=== PATIENT | female | born 1960 | race Caucasian/White ===

== ENCOUNTER 2023-05-18 12:42 | Outpatient (CLI) | payer OTHER ==
--- NOTE | 2023-05-18 13:46 | XRAY Report ---
PROCEDURE: Knee 2 View LT INDICATIONS: PAIN IN LEFT LOWER LEG TECHNIQUE: 2 views of the left knee(s) were acquired. COMPARISON: None. FINDINGS: Bones: No fractures or dislocations. No suspicious bony lesions. Minimal tricompartmental degener ative changes of the left knee. Soft tissues: No knee joint effusion. No suspicious soft tissue calcifications or masses. IMPRESSION: No acute bony abnormality. Minimal tricompartmental osteoarthrosis. Reviewed by: Wes Woodruff MD on 05/18/2023 12:44 PM JOSE Approved by: Wes Woodruff MD on 05/18/2023 12:44 PM JOSE Station ID: [id number]
== END 2023-05-18 12:43 | disposition home or self-care (01) ==
LOC: DI 12:42
PROVIDERS: ATTEND Registered Nurse
DX: M17.12 Unilateral primary osteoarthritis, left knee (principal)